=== PATIENT | female | born 1945 | race African-American/Black ===

== ENCOUNTER 2019-07-23 09:22 | Inpatient (IN) | payer MEDICARE, MEDICAID ==
[~2019-07-23] VITALS: Ht 160 cm; Wt 81.6 kg
[~2019-07-23 09:22] MED LIST: CLON0.1T PO; COR12 PO; DIPH25CA83 PO; GABA-290 PO; HYDR-519 PO
[2019-07-23] MEDS ORDERED: ENALAPRIL 2.5MG/2ML VIAL 2ML IV ONE (10:00)
[2019-07-23 10:52] LABS: CHLORIDE 104 mEq/L (98-107)
[2019-07-23 10:53] LABS: BASOPHILS % 0.5 % (0.0-2.0); EOSINOPHILS % 0.8 % (0.0-5.0); HEMATOCRIT. 44.7 % (36.0-48.0); HEMOGLOBIN. 14.4 g/dL (12.0-16.0); LYMPHOCYTES % 26.9 % (20.0-50.0); MEAN CORPUSCULAR HEMOGLOBIN 29.4 pg (28.0-32.0); MEAN CORPUSCULAR VOLUME 90.8 fL (81.0-99.0); MEAN PLATELET VOLUME 9.5 fl (7.4-10.4); MONOCYTES % 8.2 % (2.0-8.0); NEUTROPHILS % 63.6 % (40.0-76.0); PLATELET 152 x1000/uL (130-400); RED BLOOD CELL COUNT 4.92 mill/uL (4.2-5.4); RED CELL DISTRIBUTION WIDTH 13.4 % (11.6-14.6)
[2019-07-23 11:00] LABS: PARTIAL THROMBOPLASTIN TIME 30.8 sec (23.4-31.0)
[2019-07-23] MEDS ORDERED: CLONIDINE 0.1MG TABLET PO ONE (11:00)
[2019-07-23] MEDS ORDERED: FUROSEMIDE 20MG/2ML VIAL IVP ONE (12:00)
[2019-07-23] MEDS ORDERED: IPRATROPIUM/ALBUTEROL 0.5-3(2.5)MG/3ML NEB NEB PRN (13:45)
[2019-07-23] MEDS ORDERED: HYDROCODONE/ACETAMINOPHEN 10/325MG TABLET PO PRN (13:45)
[2019-07-23] MEDS ORDERED: DOCUSATE SODIUM 100MG CAPSULE PO PRN (13:45)
[2019-07-23] MEDS ORDERED: MAGNESIUM/ALUMINUM HYDROXIDE/SIMETHICONE 30ML UDC PO PRN (13:45)
[2019-07-23] MEDS ORDERED: ONDANSETRON HCL 4MG/2ML INJ IV PRN (13:45)
[2019-07-23] MEDS ORDERED: GUAIFENESIN 200MG/10ML SUGAR FREE UDC PO PRN (13:45)
[2019-07-23] MEDS ORDERED: NITROGLYCERIN 0.4MG TABLET SL SL PRN (13:45)
[2019-07-23] MEDS ORDERED: ZOLPIDEM TARTRATE 5MG TABLET PO PRN (13:45)
[2019-07-23] MEDS ORDERED: ACETAMINOPHEN 325MG TABLET PO PRN (13:45)
[2019-07-23] MEDS ORDERED: CLONIDINE 0.1MG TABLET PO PRN (13:45)
[2019-07-23] MEDS ORDERED: LORAZEPAM 0.5MG TABLET PO PRN (13:45)
[2019-07-23 14:37] LABS: CLARITY URINE CLEAR (CLEAR); COLOR URINE YELLOW (YELLOW); KETONES URINE NEGATIVE (NEGATIVE); LEUKOCYTE ESTERASE URINE NEGATIVE (NEGATIVE); NITRITE URINE NEGATIVE (NEGATIVE); OCCULT BLOOD URINE NEGATIVE (NEGATIVE); PH URINE 6.5 (4.5-8.0); PROTEIN URINE 2+ (NEGATIVE)
[2019-07-23] MEDS ORDERED: ENOXAPARIN 40MG/0.4ML SYR SUBCUT SCH (17:00)
[2019-07-23] MEDS: FAMOTIDINE 20MG TABLET PO SCH (17:04)
[2019-07-23] MEDS: MORPHINE SULFATE 2 MG/ML CPJ (NOT FOR IM USE) IV PRN ×2 (17:05→23:16)
[2019-07-23] MEDS: CARVEDILOL 12.5MG TABLET PO SCH (17:05)
[2019-07-23 18:33] VITALS: BP 149/60
[2019-07-23 20:00] VITALS: BP 101/47
[2019-07-23 23:46] LABS: CREATINE KINASE MB FRACTION 9.4 ng/mL (0.5-3.6)
[2019-07-24] VITALS: BP 115/53
[2019-07-24 04:00] VITALS: BP 144/48
[2019-07-24] MEDS: CARVEDILOL 12.5MG TABLET PO SCH ×2 (05:50→06:00)
[2019-07-24 06:49] LABS: BASOPHILS % 0.5 % (0.0-2.0); EOSINOPHILS % 0.7 % (0.0-5.0); HEMATOCRIT. 40.4 % (36.0-48.0); HEMOGLOBIN. 13.1 g/dL (12.0-16.0); LYMPHOCYTES % 39.6 % (20.0-50.0); MEAN CORPUSCULAR HEMOGLOBIN 29.3 pg (28.0-32.0); MEAN CORPUSCULAR VOLUME 90.5 fL (81.0-99.0); MEAN PLATELET VOLUME 9.4 fl (7.4-10.4); MONOCYTES % 12.1 % (2.0-8.0); NEUTROPHILS % 47.1 % (40.0-76.0); PLATELET 125 x1000/uL (130-400); RED BLOOD CELL COUNT 4.46 mill/uL (4.2-5.4); RED CELL DISTRIBUTION WIDTH 13.3 % (11.6-14.6)
[2019-07-24] MEDS ORDERED: LISI40TA4 MT (07:02)
[2019-07-24] MEDS ORDERED: METO-539 MT (07:02)
[2019-07-24] MEDS ORDERED: DIPH25CA83 PO (07:02)
[2019-07-24] MEDS ORDERED: CIPHCO EACH EAR (07:02)
[2019-07-24 07:30] LABS: CHLORIDE 109 mEq/L (98-107)
[2019-07-24 07:40] LABS: PHOSPHORUS 2.8 mg/dL (2.5-4.9)
[2019-07-24 08:00] VITALS: BP 130/58
[2019-07-24] MEDS ORDERED: METOPROLOL TARTRATE 50MG TABLET PO SCH (09:15)
[2019-07-24] MEDS ORDERED: LISINOPRIL 40MG TABLET PO SCH (09:15)
[2019-07-24] MEDS: FAMOTIDINE 20MG TABLET PO SCH (10:09)
[2019-07-24] MEDS ORDERED: MAGNESIUM 2 G PREMIX 50 ML IV NR (11:00)
[2019-07-24 12:14] VITALS: BP 152/64
[2019-07-24] MEDS: MORPHINE SULFATE 2 MG/ML CPJ (NOT FOR IM USE) IV PRN (15:49)
[2019-07-24 15:53] VITALS: BP 159/53
[2019-07-24 20:00] VITALS: BP 148/53
[2019-07-24] MEDS: METOPROLOL TARTRATE 50MG TABLET PO SCH (20:27)
[2019-07-24] MEDS: NEOMY SULF/BACITRAC ZN/POLY OINT 28GM TOP SCH (21:00)
[2019-07-25] VITALS: BP 175/90
[2019-07-25 04:00] VITALS: BP 97/73
[2019-07-25] MEDS ORDERED: ENOXAPARIN 30MG/0.3ML SYR SUBCUT SCH (06:00)
[2019-07-25 08:00] VITALS: BP 138/73
[2019-07-25 08:15] LABS: BASOPHILS % 0.3 % (0.0-2.0); HEMATOCRIT. 43.9 % (36.0-48.0); HEMOGLOBIN. 14.2 g/dL (12.0-16.0); LYMPHOCYTES % 14.8 % (20.0-50.0); MEAN CORPUSCULAR HEMOGLOBIN 29.5 pg (28.0-32.0); MEAN CORPUSCULAR VOLUME 91.7 fL (81.0-99.0); MEAN PLATELET VOLUME 9.4 fl (7.4-10.4); MONOCYTES % 4.4 % (2.0-8.0); NEUTROPHILS % 80.5 % (40.0-76.0); PLATELET 133 x1000/uL (130-400); RED BLOOD CELL COUNT 4.79 mill/uL (4.2-5.4); RED CELL DISTRIBUTION WIDTH 13.3 % (11.6-14.6)
[2019-07-25] MEDS: NEOMY SULF/BACITRAC ZN/POLY OINT 28GM TOP SCH (08:32)
[2019-07-25] MEDS: FAMOTIDINE 20MG TABLET PO SCH (08:33)
[2019-07-25] MEDS: METOPROLOL TARTRATE 50MG TABLET PO SCH (08:34)
[2019-07-25] MEDS ORDERED: LISINOPRIL 40MG TABLET PO SCH (09:00)
[2019-07-25 09:20] LABS: CHLORIDE 109 mEq/L (98-107)
[2019-07-25 09:26] LABS: PHOSPHORUS 2.4 mg/dL (2.5-4.9)
[2019-07-25] MEDS ORDERED: AMLODIPINE 2.5MG TABLET PO SCH (10:00)
[2019-07-25] MEDS ORDERED: MAGNESIUM OXIDE 400MG TABLET PO SCH (10:15)
[2019-07-25] MEDS ORDERED: MAGNESIUM 1 G PREMIX 100 ML IV NR (10:30)
[2019-07-25] MEDS ORDERED: POTASSIUM-SODIUM PHOSPHATE POWDER PACKET PO NR (10:30)
[2019-07-25 11:13] VITALS: BP 138/73
[2019-07-25 11:55] VITALS: BP 150/74
== END 2019-07-25 15:15 | disposition home or self-care (01) | DRG 315 ==
LOC: ER 09:22 → 8WST 11:31 → EDBEDREQ 11:43 → EDBEDREQTM 11:43 → SUPCPDRO 13:40 → ENRESERV 13:49
PROVIDERS: ADMIT Internal Medicine; ATTEND Internal Medicine
DX: T82.897A Other specified complication of cardiac prosthetic devices, implants and grafts, initial encounter (principal); L03.313 Cellulitis of chest wall; M35.1 Other overlap syndromes; I13.10 Hypertensive heart and chronic kidney disease without heart failure, with stage 1 through stage 4 chronic kidney disease, or unspecified chronic kidney disease; N18.1 Chronic kidney disease, stage 1; I25.10 Atherosclerotic heart disease of native coronary artery without angina pectoris; M79.7 Fibromyalgia; R80.9 Proteinuria, unspecified; M32.9 Systemic lupus erythematosus, unspecified; E83.39 Other disorders of phosphorus metabolism; E83.42 Hypomagnesemia; F17.210 Nicotine dependence, cigarettes, uncomplicated; Z82.49 Family history of ischemic heart disease and other diseases of the circulatory system; Z95.1 Presence of aortocoronary bypass graft; Z95.0 Presence of cardiac pacemaker; Z88.8 Allergy status to other drugs, medicaments and biological substances; Z79.899 Other long term (current) drug therapy
CPT/HCPCS: 36415; 71045; 76604; 80048; 80061; 81003; 82550; 82553; 83036; 83605; 83735; 83880; 84100; 84145; 84484; 86850; 86900; 93005; 93970; 96372; 99291; C1893; J1650; J1940; J2270; J3475; J3490; J7040

== ENCOUNTER 2019-07-28 18:47 | Inpatient (IN) | payer MEDICARE, MEDICAID ==
[~2019-07-28] VITALS: Ht 160 cm; Wt 74.8 kg
[~2019-07-28 18:47] MED LIST changes: +CIPHCO EACH EAR; +LISI40TA4 MT; +METO-539 MT
[2019-07-28] MEDS ORDERED: VANCOMYCIN 1 G PREMIX 200 ML IV ONE (19:45)
[2019-07-28] MEDS ORDERED: PIPERACILLIN/TAZ 3.375G PREMIX 50 ML IV ONE (19:45)
[2019-07-28 20:29] LABS: BASOPHILS % 0.4 % (0.0-2.0); EOSINOPHILS % 0.6 % (0.0-5.0); HEMOGLOBIN. 14.2 g/dL (12.0-16.0); LYMPHOCYTES % 34.6 % (20.0-50.0); MEAN CORPUSCULAR HEMOGLOBIN 29.3 pg (28.0-32.0); MEAN CORPUSCULAR VOLUME 91.2 fL (81.0-99.0); MEAN PLATELET VOLUME 9.4 fl (7.4-10.4); MONOCYTES % 8.7 % (2.0-8.0); NEUTROPHILS % 55.7 % (40.0-76.0); PLATELET 131 x1000/uL (130-400); RED BLOOD CELL COUNT 4.83 mill/uL (4.2-5.4); RED CELL DISTRIBUTION WIDTH 13.7 % (11.6-14.6)
[2019-07-28 20:36] LABS: CHLORIDE 108 mEq/L (98-107)
[2019-07-28 20:37] LABS: PARTIAL THROMBOPLASTIN TIME 27.3 sec (23.4-31.0)
[2019-07-28] MEDS ORDERED: HYDROCODONE/ACETAMINOPHEN 10/325MG TABLET PO ONE (22:00)
[2019-07-29] VITALS: BP 124/61
[2019-07-29] MEDS ORDERED: HYDROCODONE/ACETAMINOPHEN 10/325MG TABLET PO PRN (01:15)
[2019-07-29] MEDS ORDERED: ZOLPIDEM TARTRATE 5MG TABLET PO PRN (01:15)
[2019-07-29] MEDS ORDERED: GUAIFENESIN 200MG/10ML SUGAR FREE UDC PO PRN (01:15)
[2019-07-29] MEDS ORDERED: LORAZEPAM 0.5MG TABLET PO PRN (01:15)
[2019-07-29] MEDS ORDERED: DIPHENHYDRAMINE 50MG/ML VIAL IV PRN (01:15)
[2019-07-29] MEDS ORDERED: ACETAMINOPHEN 325MG TABLET PO PRN (01:15)
[2019-07-29] MEDS ORDERED: DOCUSATE SODIUM 100MG CAPSULE PO PRN (01:15)
[2019-07-29] MEDS ORDERED: IPRATROPIUM/ALBUTEROL 0.5-3(2.5)MG/3ML NEB NEB PRN (01:15)
[2019-07-29] MEDS ORDERED: NITROGLYCERIN 0.4MG TABLET SL SL PRN (01:15)
[2019-07-29] MEDS ORDERED: MAGNESIUM/ALUMINUM HYDROXIDE/SIMETHICONE 30ML UDC PO PRN (01:15)
[2019-07-29] MEDS ORDERED: MORPHINE SULFATE 4 MG/ML CPJ (NOT FOR IM USE) IV PRN (01:15)
[2019-07-29] MEDS ORDERED: ONDANSETRON HCL 4MG/2ML INJ IV PRN (01:15)
[2019-07-29] MEDS ORDERED: CLONIDINE 0.1MG TABLET PO PRN (01:15)
[2019-07-29 04:00] VITALS: BP 133/71
[2019-07-29] MEDS: PIPERACILLIN/TAZOBACTAM 3.375 G in DEXT 5% WATER 100 ML IV SCH ×3 (06:07→21:57)
[2019-07-29 08:00] VITALS: BP_SYST 128; BP_SYST 174; BP_DIAS 69; BP_DIAS 79
[2019-07-29] MEDS ORDERED: VANCOMYCIN 750 MG PREMIX 150 ML IV SCH (08:00)
[2019-07-29] MEDS: METOPROLOL TARTRATE 25MG TABLET PO SCH ×2 (08:18→20:53)
[2019-07-29] MEDS: ENOXAPARIN 40MG/0.4ML SYR SUBCUT SCH (08:19)
[2019-07-29] MEDS: LISINOPRIL 20MG TABLET PO SCH ×2 (08:19→20:53)
[2019-07-29] MEDS: ZINC SULFATE 220 MG ( 50 ) CAPSULE PO SCH (08:30)
[2019-07-29] MEDS: FAMOTIDINE 20MG TABLET PO SCH ×2 (08:30→20:53)
[2019-07-29] MEDS: ASCORBIC ACID 500 MG TABLET PO SCH ×2 (08:30→20:53)
[2019-07-29 12:00] VITALS: BP 132/86
[2019-07-29] MEDS: VANCOMYCIN 1 G PREMIX 200 ML IV SCH (12:12)
[2019-07-29] MEDS: AMLODIPINE 5MG TABLET PO SCH ×2 (13:26→20:53)
[2019-07-29 16:00] VITALS: BP 118/70
[2019-07-29] MEDS: DOCUSATE SODIUM 100MG CAPSULE PO SCH ×2 (17:37→17:38)
[2019-07-29 18:05] LABS: CLARITY URINE CLEAR (CLEAR); COLOR URINE YELLOW (YELLOW); KETONES URINE NEGATIVE (NEGATIVE); LEUKOCYTE ESTERASE URINE NEGATIVE (NEGATIVE); NITRITE URINE NEGATIVE (NEGATIVE); OCCULT BLOOD URINE NEGATIVE (NEGATIVE); PH URINE 7.5 (4.5-8.0); PROTEIN URINE 1+ (NEGATIVE); SPECIFIC GRAVITY URINE 1.009 (1.005-1.030)
[2019-07-29 18:24] LABS: *AMPHETAMINES SCREEN URINE NEGATIVE (NEGATIVE); *BARBITURATES SCREEN URINE NEGATIVE (NEGATIVE)
[2019-07-29 18:25] LABS: *BENZODIAZEPINES SCREEN URINE NEGATIVE (NEGATIVE); *COCAINE SCREEN URINE NEGATIVE (NEGATIVE)
[2019-07-29 18:26] LABS: CANNABINOID URINE SCREEN NEGATIVE (NEGATIVE); METHADONE URINE SCREEN NEGATIVE (NEGATIVE); OPIATES URINE SCREEN PRESUMTIVE POSITIVE (NEGATIVE); PHENCYCLIDINE URINE SCREEN NEGATIVE (NEGATIVE)
[2019-07-29 20:30] VITALS: BP 215/79
[2019-07-30] VITALS: BP 197/80
[2019-07-30 04:00] VITALS: BP 110/49
[2019-07-30] MEDS: PIPERACILLIN/TAZOBACTAM 3.375 G in DEXT 5% WATER 100 ML IV SCH (05:51)
[2019-07-30] MEDS: VANCOMYCIN 1 G PREMIX 200 ML IV SCH (06:13)
[2019-07-30 07:14] LABS: CHLORIDE 107 mEq/L (98-107)
[2019-07-30 07:15] LABS: BASOPHILS % 0.4 % (0.0-2.0); EOSINOPHILS % 0.4 % (0.0-5.0); HEMATOCRIT. 43.4 % (36.0-48.0); HEMOGLOBIN. 14.1 g/dL (12.0-16.0); LYMPHOCYTES % 20.2 % (20.0-50.0); MEAN CORPUSCULAR HEMOGLOBIN 29.5 pg (28.0-32.0); MEAN CORPUSCULAR VOLUME 90.8 fL (81.0-99.0); MEAN PLATELET VOLUME 9.7 fl (7.4-10.4); MONOCYTES % 6.8 % (2.0-8.0); NEUTROPHILS % 72.2 % (40.0-76.0); PLATELET 133 x1000/uL (130-400); RED BLOOD CELL COUNT 4.78 mill/uL (4.2-5.4); RED CELL DISTRIBUTION WIDTH 13.4 % (11.6-14.6)
[2019-07-30 07:35] LABS: PHOSPHORUS 2.6 mg/dL (2.5-4.9)
[2019-07-30 07:37] LABS: CREATINE KINASE 138 IU/L (26-192)
[2019-07-30 07:41] LABS: CREATINE KINASE MB FRACTION 6.3 ng/mL (0.5-3.6)
[2019-07-30 08:00] VITALS: BP 154/72
[2019-07-30] MEDS: ENOXAPARIN 40MG/0.4ML SYR SUBCUT SCH (09:00)
[2019-07-30] MEDS: DOCUSATE SODIUM 100MG CAPSULE PO SCH (11:14)
[2019-07-30] MEDS: LISINOPRIL 20MG TABLET PO SCH (11:14)
[2019-07-30] MEDS: AMLODIPINE 5MG TABLET PO SCH (11:14)
[2019-07-30] MEDS: FAMOTIDINE 20MG TABLET PO SCH (11:14)
[2019-07-30] MEDS: ASCORBIC ACID 500 MG TABLET PO SCH (11:15)
[2019-07-30] MEDS: ZINC SULFATE 220 MG ( 50 ) CAPSULE PO SCH (11:15)
[2019-07-30] MEDS: METOPROLOL TARTRATE 25MG TABLET PO SCH (11:15)
[2019-07-31 04:17] LABS: MICROALBUMIN RANDOM URINE 167.2 ug/mL (Not Estab.)
[2019-07-31 09:06] LABS: IMMUNOGLOBULIN A 241 mg/dL (64-422); IMMUNOGLOBULIN G 1903 mg/dL (700-1600); IMMUNOGLOBULIN M 101 mg/dL (26-217)
[2019-08-03 13:11] LABS: A/G RATIO 0.8 (0.7-1.7); ALPHA-1-GLOBULIN 0.3 g/dL (0.0-0.4); ALPHA-2-GLOBULIN 0.9 g/dL (0.4-1.0); BETA GLOBULIN 0.9 g/dL (0.7-1.3); M-SPIKE Not Observed g/dL (Not Observed)
== END 2019-07-30 13:30 | disposition left against medical advice (07) | DRG 315 ==
LOC: ER 18:47 → 7WST 23:03 → EDBEDREQTM 23:07 → EDBEDREQ 23:07 → ENRESERV 23:24
PROVIDERS: ADMIT Internal Medicine; ATTEND Internal Medicine
DX: T82.7XXA Infection and inflammatory reaction due to other cardiac and vascular devices, implants and grafts, initial encounter (principal); E44.0 Moderate protein-calorie malnutrition; J98.11 Atelectasis; L02.213 Cutaneous abscess of chest wall; E78.5 Hyperlipidemia, unspecified; G62.9 Polyneuropathy, unspecified; I25.10 Atherosclerotic heart disease of native coronary artery without angina pectoris; M54.40 Lumbago with sciatica, unspecified side; M79.7 Fibromyalgia; E21.0 Primary hyperparathyroidism; E66.9 Obesity, unspecified; F17.210 Nicotine dependence, cigarettes, uncomplicated; G89.4 Chronic pain syndrome; I13.10 Hypertensive heart and chronic kidney disease without heart failure, with stage 1 through stage 4 chronic kidney disease, or unspecified chronic kidney disease; J44.9 Chronic obstructive pulmonary disease, unspecified; Y83.1 Surgical operation with implant of artificial internal device as the cause of abnormal reaction of the patient, or of later complication, without mention of misadventure at the time of the procedure; I49.5 Sick sinus syndrome; Z53.29 Procedure and treatment not carried out because of patient's decision for other reasons; M19.90 Unspecified osteoarthritis, unspecified site; M32.9 Systemic lupus erythematosus, unspecified; N18.1 Chronic kidney disease, stage 1; Z80.51 Family history of malignant neoplasm of kidney; Z82.49 Family history of ischemic heart disease and other diseases of the circulatory system; Z84.1 Family history of disorders of kidney and ureter; Z95.1 Presence of aortocoronary bypass graft; Z95.810 Presence of automatic (implantable) cardiac defibrillator; Z68.29 Body mass index [BMI] 29.0-29.9, adult; Z90.49 Acquired absence of other specified parts of digestive tract; Z79.899 Other long term (current) drug therapy; Y92.89 Other specified places as the place of occurrence of the external cause
CPT/HCPCS: 36415; 71045; 80305; 81003; 82043; 82550; 82553; 82570; 82784; 83605; 83735; 83880; 84100; 84145; 84155; 84156; 84165; 84443; 84484; 86334; 87070; 93005; 93306; 96365; 96366; 96375; 99285; A6261; J1200; J1650; J2270; J2405; J2543; J3370; J7040; J7060